=== PATIENT | female | born 1970 | race Caucasian/White ===

== ENCOUNTER 2021-05-29 17:09 | Emergency (ER) | payer SELFPAY ==
[2021-05-29 17:16] VITALS: BP 125/84; PULSE 105; RESP 16; TEMP 37.7; O2SAT 93; BMI 32.8
--- NOTE | 2021-05-29 18:33 | XRR_ITS ---
PROCEDURE INFORMATION: Exam: XR Chest Exam date and time: 05/29/2021 6:33 PM Age: 50 years old Clinical indication: Cough TECHNIQUE: Imaging protocol: XR of the chest. Views: 1 view. COMPARISON: No relevant prior studies available. FINDINGS: Lungs: Unremarkable. No consolidation. Pleural spaces: Unremarkable. No pleural effusion. No pneumothorax. Heart/Mediastinum: Unremarkable. No cardiomegaly. Bones/joints: Unremarkable. XR/XR chest 1V portable [id number] IMPRESSION: No acute findings.
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
[2021-05-29 18:44] LABS: Basophils # 0.1 10^3/uL (0.0-0.1); Basophils % 0.3 %; Hematocrit 45.6 % (37.0-47.0); Hemoglobin 15.4 g/dL (11.5-15.3); Lymphocytes # 1.7 10^3/uL (0.8-4.8); Lymphocytes % 9.7 %; Mean Corpuscular HGB Conc 33.8 g/dL (30.0-36.0); Mean Corpuscular Hemoglobin 28.9 pg (28.0-34.0); Mean Corpuscular Volume 85.6 fl (81-99); Monocytes # 0.8 10^3/uL (0.2-0.9); Monocytes % 4.3 %; Neutrophils # 14.97 10^3/uL (1.8-7.7); Neutrophils % 85.2 %; Nucleated Red Blood Cells % 0 %; Platelet Count 246 10^3/cmm (130-400); Red Blood Count 5.33 10^6/uL (4.1-5.3); Red Cell Distribution Width 12.9 % (12.1-15.1); White Blood Count 17.6 10^3/uL (4.0-10.0)
[2021-05-29 18:46] VITALS: RESP 18; O2SAT 97
[2021-05-29] MEDS: morphine 4 mg/mL SDV 1 mL IVP (18:46)
[2021-05-29] MEDS: ondansetron 2 mg/ML SDV 2 mL 4 MG IVP (18:46)
[2021-05-29] MEDS: sodium chloride 0.9% 1,000 ML 999 ML IV (18:47)
[2021-05-29] MEDS: acetaminophen 325 mg Tablet 650 MG PO (18:47)
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
[2021-05-29] MEDS: iohexol 300 mg/mL 100 mL Btl IV (18:59)
--- NOTE | 2021-05-29 19:11 | PC.NURSE ---
report received patient returned from CT, respirations even equal and unlabored. IVF infusing. NAD
[2021-05-29 19:29] LABS: Bilirubin Urine 1+ (Negative); Blood Urine 2+ (Negative); Glucose Urine UA Norm (Normal); Ketones Urine 2+ (Negative); Leukocyte Esterase Urine 2+ (Negative); Nitrate Urine Negative (Negative); Protein Urine 1+ (Negative); Urine Appearance Clear (CLEAR); Urine Color Yellow (Yellow); Urobilinogen Urine 4 mg/dL (Negative); pH Urine 5 (5-7)
[2021-05-29 19:30] LABS: Add Urine Culture? Yes; Add Urine Microscopic? YES; Bacteria Urine 2+ /hpf; Mucus Urine 3+ /hpf; RBC Urine 15-25 /hpf (0-2); WBC Urine 15-25 /hpf (0-5)
[2021-05-29 19:39] LABS: Alanine Aminotransferase 9 U/L (0-33); Albumin Level 4.6 g/dL (3.5-5.2); Alkaline Phosphatase 131 IU/L (35-105); Anion Gap 17.5 (5-19); Aspartate Amino Transferase 14 U/L (0-32); Blood Urea Nitrogen 22 mg/dL (6-20); Calcium 9.5 mg/dL (8.5-10.5); Carbon Dioxide 21 mmol/L (22-29); Chloride 101 mmol/L (98-107); Globulin 3.5 g/dL (1.3-4.6); Glomerular Filtration Rate 52.4 mL/min (90-130); Glucose 110 mg/dL (65-115); Lipase 23 U/L (13-60); Osmolality Calculated 286 mOsm/kg (285-295); Potassium 3.5 mmol/L (3.5-5.1); Sodium 136 mmol/L (136-145); Total Bilirubin 0.8 mg/dL (0.15-1.2); Total Protein 8.1 g/dL (6.6-8.7)
[2021-05-29] MEDS: cefTRIAXone 1,000 MG in sodium chloride 0.9% (plus) 50 ML 100 MG IV (20:29)
[2021-05-29 20:47] LABS: Rapid Plasma Reagin Syphilis Nonreactive (Nonreactive)
[2021-05-29 21:07] LABS: Lactate (Lactic Acid level) 0.6 mmol/L (0.5-2.2)
== END 2021-05-29 20:49 | disposition home or self-care (01) ==
PROVIDERS: Nurse Practitioner Family; Emergency Provider Emergency Medicine
DX: R10.33 Periumbilical pain (principal); N30.00 Acute cystitis without hematuria
CPT/HCPCS: 71045; 74177; 80053; 81001; 83605; 83690; 85025; 86592; 87086; 96365; 96375; 99284; J0696; J2270; J2405; J7030; Q9967

== ENCOUNTER 2021-06-16 09:32 | Emergency (ER) | payer SELFPAY ==
--- NOTE | 2021-06-16 09:46 | XRR_ITS ---
PROCEDURE INFORMATION: Exam: XR Chest Exam date and time: 06/16/2021 9:15 AM Age: 50 years old Clinical indication: Pain; Shortness of breath; On breathing; Additional info: SOB TECHNIQUE: Imaging protocol: XR of the chest. Views: 1 view. COMPARISON: CR (CHEST, ) 05/29/2021 6:38 PM FINDINGS: Lungs: Unremarkable. No consolidation. Pleural spaces: Unremarkable. No pleural effusion. No pneumothorax. Heart/Mediastinum: Unremarkable. No cardiomegaly. Bones/joints: Unremarkable. XR/XR chest 1V portable [id number] IMPRESSION: No acute findings.
[2021-06-16 09:47] VITALS: BP 109/78; PULSE 93; RESP 24; TEMP 36.9; O2SAT 97; BMI 29.6
--- NOTE | 2021-06-16 09:50 | ED_ITS ---
HPI - Abdominal Pain General: Chief Complaint: Shortness of Breath/Dyspnea Stated Complaint: sob Time Seen by Provider: 06/16/21 09:38 History of Present Illness: Patient comes in with left upper abdomen/left lower chest pain. She is holding her left upper quadrant and appears very u ncomfortable on the gurney. States it started about 3 days ago. States she was here a week ago with the same pain and was diagnosed with a right lung mass. Review of that note shows that the patient was told about this mass and states she has been told about it before but has not followed up. She denies fever, diarrhea. Associated Symptoms: Denies dysuria, fever(s), nausea and vomiting Review of Systems Const: Denies: fever(s) or body aches Eyes: Denies: change in vision or blurry vision ENMT: Denies: throat pain or odynophagia Card: Denies: chest pain or palpitations Resp: Reports: dyspnea; Denies: productive cough GI: Reports: abdominal pain; Denies: nausea or vomiting : Denies: flank pain or dysuria Musc: Denies: neck pain or back pain Skin/Breast: Denies: rash or pruritus Neuro: Denies: headache(s) or numbness in extremities Psych: Denies: anxiety or change in appetite Endo: Denies: polyuria or excessive sweating Physical Exam Const: COMMON NORMALS: patient oriented x3, healthy appearing and alert OTHER: Mild distress from pain HENMT: COMMON NORMALS: normocephalic and atraumatic HEAD & SCALP: normoce phalic and atraumatic Eye: COMMON NORMALS: Equal, round and reactive pupils present and EOMs intact bilaterally PUPIL: Yes Equal, round and reactive pupils present Neck/C-Spine: COMMON NORMALS: full ROM and supple Resp: COMMON NORMALS: normal respiratory effort, No retractions and No use of accessory muscles Cardio: COMMON NORMALS: regular rate and regular rhythm RATE: regular rate RHYTHM: regular rhythm GI: COMMON NORMALS: Normal to inspection, nondistended, normoactive bowel sounds present and Soft to palpation PALPATION: Yes Soft to palpation OTHER: Epigastric/left upper quadrant tenderness palpation Back/Pelvis: COMMON NORMALS: thoracic and lumbar spine normal to inspection and no thoracic nor lumbar tenderness Extremity: COMMON NORMALS: normal to inspection and full ROM Neuro: COMMON NORMALS: patient oriented x3 SENSORIUM/ORIENTATION: Yes alert Psych: COMMON NORMALS: mental status grossly normal and cooperative Skin: COMMON NORMALS: no rashes or lesions noted and no wounds GENERAL SKIN EXAM: no rashes or lesions noted Course Vital Signs: Vital signs: Vital Signs Temperature 98.4 F 06/16/21 09:47 Pulse Rate 93 06/16/21 09:47 Respiratory Rate 24 H 06/16/21 09:47 Blood Pressure 109/78 06/16/21 09:47 Pulse Oximetry 97 06/16/21 09:47 MDM - Abdominal Pain Medical Decision Making Patient comes in with left upper abdomen/left lower chest pain. She is holding her left upper quadrant and appears very uncomfortable on the gurney. States it started about 3 days ago. States she was here a week ago with the same pain and was diagnosed with a right lung mass. Review of that note shows that the patient was told about this mass and states she has been told about it before but has not followed up. She denies fever, diarrhea. On physical exam she has breath sounds in bilateral lung wells. She has tenderness palpation of her left upper quadrant/epigastric region. Will check labs, treat pain with IV morphine, check CTA chest, and reassess On reassessment the patient states that she was recently prescribed marijuana. Given her symptoms I suspect she is dealing with cannabis hyperemesis. Will stop the morphine and give her Haldol IV. I discussed this plan with the patient and she agrees with the plan. On reassessment the patient is much more comfortable. She states her pain is significantly improved if not gone at this time. I talked her about the test results. Will discharge at this time with precautions return for worsening or changing symptoms. Lab Data : 06/16/21 10:05 06/16/21 10:05 Labs/Radiology: Radiology Impressions Chest X-Ray 06/16/21 09:46 IMPRESSION: No acute findings. Laboratory Results WBC 16.5 10^3/uL (4.0-10.0) H 06/16/21 10:05 RBC 5.43 10^6/uL (4.1-5.3) H 06/16/21 10:05 Hgb 15.3 g/dL (11.5-15.3) 06/16/21 10:05 Hct 45.3 % (37.0-47.0) 06/16/21 10:05 MCV 83.4 fl (81-99) 06/16/21 10:05 MCH 28.2 pg (28.0-34.0) 06/16/21 10:05 MCHC 33.8 g/dL (30.0-36.0) 06/16/21 10:05 RDW 13.0 % (12.1-15.1) 06/16/21 10:05 Plt Count 265 10^3/cmm (130-400) 06/16/21 10:05 MPV 9.8 fL (7.4-10.4) 06/16/21 10:05 Neut % (Auto) 83.4 % 06/16/21 10:05 Lymph % (Auto) 11.9 % 06/16/21 10:05 [place] % (Auto) 3.9 % 06/16/21 10:05 Eos % (Auto) 0.0 % 06/16/21 10:05 Baso % (Auto) 0.3 % 06/16/21 10:05 Neut # (Auto) 13.74 10^3/uL (1.8-7.7) H 06/16/21 10:05 Lymph # (Auto) 2.0 10^3/uL (0.8-4.8) 06/16/21 10:05 [place] # (Auto) 0.7 10^3/uL (0.2-0.9) 06/16/21 10:05 Eos # (Auto) 0.0 10^3/uL (0.0-0.8) 06/16/21 10:05 Baso # (Auto) 0.1 10^3/uL (0.0-0.1) 06/16/21 10:05 Nucleated RBC % (auto) 0 % 06/16/21 10:05 Nucleated RBCs # 0.0 /100WBC 06/16/21 10:05 Sodium 134 mmol/L (136-145) L 06/16/21 10:05 Potassium 3.9 mmol/L (3.5-5.1) 06/16/21 10:05 Chloride 98 mmol/L (98-107) 06/16/21 10:05 Carbon Dioxide 20 mmol/L (22-29) L 06/16/21 10:05 Anion Gap 19.9 (5-19) H 06/16/21 10:05 BUN 11 mg/dL (6-20) 06/16/21 10:05 Creatinine 1.0 mg/dL (0.5-0.9) H 06/16/21 10:05 GFR Calculation 58.5 mL/min (90-130) L 06/16/21 10:05 Glucose 107 mg/dL (65-115) 06/16/21 10:05 Calculated Osmolality 278 mOsm/kg (285-295) L 06/16/21 10:05 Calcium 9.5 mg/dL (8.5-10.5) 06/16/21 10:05 Total Bilirubin 1.3 mg/dL (0.15-1.2) H 06/16/21 10:05 AST 13 U/L (0-32) 06/16/21 10:05 ALT 11 U/L (0-33) 06/16/21 10:05 Alkaline Phosphatase 136 IU/L (35-105) H 06/16/21 10:05 NT-Pro-B Natriuret Pep 445 pg/mL (0-125) H 06/16/21 10:05 Total Protein 8.5 g/dL (6.6-8.7) 06/16/21 10:05 Albumin 4.4 g/dL (3.5-5.2) 06/16/21 10:05 Globulin 4.1 g/dL (1.3-4.6) 06/16/21 10:05 Discharge Plan Discharge Patient Disposition: Home Clinical Impression: Cannabinoid hyperemesis syndrome Condition: Stable Prescriptions: No Action hydrocodone-acetaminophen 5-325 mg tablet 1 tab PO Q6H PRN (Reason: pain) Qty: 14 0RF ondansetron 4 mg tablet,disintegrating 4 mg PO Q6H PRN (Reason: nausea and vomiting) Qty: 14 0RF Discharge Orders: Discharge ED (Routine); Ordered 06/16/21 Ordered By: Vj Burkett Patient Instructions: Cannabis Use Disorder (ED) Coding Level of Care Code ED Veterinary Epidemiologist for Shaeg Fwd Exam Comprehensive
[2021-06-16] MEDS: haloperidol inj 5 mg/mL INJ 1 mL IVP (10:04)
--- NOTE | 2021-06-16 10:13 | ECG_ITS ---
[facility] Test Date: 2021-06-16 Pat Name: Suzy Christiansen Department: Room: Gender: Female Community Liaison: : 1970 Requested By: Vj Burkett Order Number: [id number] Sanjana MD: Briseyda Brown M.D. Measurements Intervals [place] Rate: P: WI: QRS: QRSD: T: QT: QTc: Interpretive Statements Possible multifocal atrial rhythm NO FURTHER INTERPRETATION POSSIBLE ATYPICAL ECG WARNING: DATA QUALITY MAY AFFECT INTERPRETATION No previous ECG available for comparison Electronically Signed On 06-17-2021 17:23:53 CDT by Briseyda Brown M.D. [email or web address] hospital [email or web address]/[id number]
[2021-06-16 10:20] LABS: Basophils # 0.1 10^3/uL (0.0-0.1); Basophils % 0.3 %; Hematocrit 45.3 % (37.0-47.0); Hemoglobin 15.3 g/dL (11.5-15.3); Lymphocytes % 11.9 %; Mean Corpuscular HGB Conc 33.8 g/dL (30.0-36.0); Mean Corpuscular Hemoglobin 28.2 pg (28.0-34.0); Mean Corpuscular Volume 83.4 fl (81-99); Mean Platelet Volume 9.8 fL (7.4-10.4); Monocytes # 0.7 10^3/uL (0.2-0.9); Monocytes % 3.9 %; Neutrophils # 13.74 10^3/uL (1.8-7.7); Neutrophils % 83.4 %; Nucleated Red Blood Cells % 0 %; Platelet Count 265 10^3/cmm (130-400); Red Blood Count 5.43 10^6/uL (4.1-5.3); White Blood Count 16.5 10^3/uL (4.0-10.0)
[2021-06-16 10:59] LABS: Alanine Aminotransferase 11 U/L (0-33); Albumin Level 4.4 g/dL (3.5-5.2); Alkaline Phosphatase 136 IU/L (35-105); Anion Gap 19.9 (5-19); Aspartate Amino Transferase 13 U/L (0-32); Blood Urea Nitrogen 11 mg/dL (6-20); Calcium 9.5 mg/dL (8.5-10.5); Carbon Dioxide 20 mmol/L (22-29); Chloride 98 mmol/L (98-107); Globulin 4.1 g/dL (1.3-4.6); Glomerular Filtration Rate 58.5 mL/min (90-130); Glucose 107 mg/dL (65-115); NT Pro B Type Natriuretic Pept 445 pg/mL (0-125); Osmolality Calculated 278 mOsm/kg (285-295); Potassium 3.9 mmol/L (3.5-5.1); Sodium 134 mmol/L (136-145); Total Bilirubin 1.3 mg/dL (0.15-1.2); Total Protein 8.5 g/dL (6.6-8.7)
[2021-06-16 11:24] VITALS: BP 107/67; PULSE 93; RESP 14; O2SAT 100
== END 2021-06-16 11:27 | disposition home or self-care (01) ==
PROVIDERS: Emergency Provider Emergency Medicine
DX: R11.10 Vomiting, unspecified (principal); F12.90 Cannabis use, unspecified, uncomplicated
CPT/HCPCS: 71045; 80053; 83880; 85025; 93005; 96374; 99283; J1630